=== PATIENT | male | born 1995 | race Caucasian/White ===

== ENCOUNTER 2017-06-08 21:56 | Emergency (ER) | payer OTHER ==
[2017-06-08] MEDS ORDERED: Fluorescein Opthalmic Strip ONE (22:05)
[2017-06-08] MEDS ORDERED: Proparacaine 0.5% Opth 15 ML BOT ONE (22:06)
[2017-06-08] MEDS ORDERED: Bacitracin Zinc Ointment 30 gm TUBE ONE (23:23)
== END 2017-06-08 23:39 | disposition home or self-care (01) ==
LOC: SCSER 21:56
DX: T20.30XA Burn of third degree of head, face, and neck, unspecified site, initial encounter (principal); T31.0 Burns involving less than 10% of body surface; X10.2XXA Contact with fats and cooking oils, initial encounter
CPT/HCPCS: 99283